=== PATIENT | male | born 1960 | race Caucasian/White ===

== ENCOUNTER → 2017-07-18 | Outpatient (CLI) | payer MEDICARE, OTHER ==
[~2017-07-18] MED LIST: ASPIR-LOW81 MG PO; IOPAMIDOL 370 MG/ML 200 ML INFUS..BTL INJ ONE; LIPITOR20 MG; LOTREL 5-40 MG1 EACH PO; NITRO-DUR1 EAC2 PO; NITROGLYCERIN0.4 MG SL; NORCO 10-325 T1 EACH PO; OXYCODONE HCL10 MG PO; PLAVIX75 MG PO; SODIUM CHLORIDE 0.9% 50ML 50 ML ONE; TRICOR145 MG PO; XANAX2 MG PO; ZETIA10 MG PO
[2017-07-18 14:31] LABS: BLOOD UREA NITROGEN 16 mg/dL (7-26); BUN/CREATININE RATIO 19 (6-25); CREATININE, SERUM 0.86 mg/dL (0.72-1.25); EST GLOMERULAR FILTRATION RATE > 60 ML/MIN (60-)
--- NOTE | 2017-07-19 08:06 | Diagnostic Imaging Report ---
CT abdomen, pelvis and lower extremities, July 18, 2017 Clinical history: Embolism. Left leg pain. Comparison: None Technique: Arterial phase CT abdomen, pelvis and lower extremities after administration of 100 mL Isovue-370 intravenous contrast. Multiplanar reformatted images. Volumetric 3-D images of the arterial tree generated on an independent workstation under physician supervision. DLP: 764.63 Findings: Vascular findings: Aortic dimensions: Diaphragmatic hiatus: 2.2 cm Level of renal arteries: 2 cm Infrarenal aorta: 1.7 cm Normal aortic caliber and contour. Mild zrg-delq-bgsettaj atherosclerosis of the infrarenal segment. Celiac: Normal SMA: Normal MICHELLE: Normal Renal arteries: Single bilaterally. Normal caliber. Trace eyw-wgnm-zwsajbhg atherosclerosis of the left proximal renal artery. Right lower extremity: Common iliac artery: Patent. Indwelling stent extending across the internal iliac origin. No flow limiting stenosis. External iliac: Normal Common femoral artery: Uxe-olka-oqdiumjr calcified and noncalcified posterior plaque. Patent profunda femoris with mild atherosclerosis. SFA: Patent. 2 cm distal segmental stenosis (about 50%) (image 44, series 404) Popliteal: Patent. Juj-jjfc-oxajmqhu proximal segmental calcification. Anterior tibial artery: Patent, with intact runoff to the dorsalis pedis. Proximal nhw-gdcb-osedvtmx noncalcified plaque. Dorsalis pedis: Atherosclerosis with diminutive flow. Tibial peroneal trunk: Xmk-xmtu-kdmcviuo calcification. Peroneal artery: Normal runoff to the ankle. Posterior tibial: Normal runoff to the plantar arteries. Left lower extremity: Common iliac artery: Occluded. Indwelling stent extending to the distal segment. Patent internal iliac artery. External iliac: Origin atherosclerosis without flow-limiting stenosis Common femoral artery: Qgv-xkfe-qaqxqbtb calcified and noncalcified posterior plaque. Patent profunda femoris with mild atherosclerosis. SFA: Patent. Scattered calcified and noncalcified wlb-qgsu-vpbqqkng plaque. Popliteal: Patent. Uho-wawq-ikhsrazz proximal segmental calcification. Anterior tibial artery: Patent, with intact runoff to the dorsalis pubis. Proximal phq-nori-urgizxla noncalcified plaque. Dorsalis pedis: Patent Tibial peroneal trunk: Nonflow-limiting calcification. Peroneal artery: Normal runoff to the ankle. Posterior tibial: Normal runoff to the plantar arteries. Relatively diminished flow compared to the left plantar arteries. Nonvascular findings: Clear lung bases. No pleural effusions. Normal heart size. Liver: Normal Gallbladder: Normal Pancreas: Normal Spleen: Normal Adrenal glands: Normal Kidneys: Normal Urinary bladder: Normal Prostate and seminal vesicles: Normal Bowel: Normal caliber. Peritoneum: Normal Lymph nodes: Normal Skeleton: L4-L5 and L5-S1 anterior fusion. Extensive bilateral facet arthropathy. Grossly patent neural foramen. Bone graft from the left iliac wing. Soft tissues: Normal Impression: 1. 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 Recannulized external iliac artery. Multifocal upr-vmcw-tceugxmd atherosclerosis of the common femoral, superficial femoral and infrapopliteal vasculature as described. 2. Patent right common iliac artery stent without distal flow limiting stenosis. There are diminutive right dorsalis pedis and plantar arteries. This report was generated with voice-recognition technology. Errors in environmental services attendant can occur. Please interpret accordingly and contact a radiologist if there are any questions regarding the report. Signed by: Dr. Logan Altmairano M.D. on 07/19/2017 8:02 AM
== END ==
LOC: CT 13:38
PROVIDERS: ATTEND Internal Medicine Cardiovascular Disease
DX: I74.5 Embolism and thrombosis of iliac artery (principal); I73.9 Peripheral vascular disease, unspecified
CPT/HCPCS: 36415; 75635; 82565; 84520; Q9967

== ENCOUNTER → 2017-08-01 | Outpatient (CLI) | payer MEDICARE, OTHER ==
[~2017-08-01] MED LIST changes: -IOPAMIDOL 370 MG/ML 200 ML INFUS..BTL INJ ONE; +REGADENOSON 0.4 MG/5 ML SYR IV ONE; -SODIUM CHLORIDE 0.9% 50ML 50 ML ONE
== END ==
LOC: NM 08:23
PROVIDERS: ATTEND Internal Medicine Cardiovascular Disease
DX: Z01.818 Encounter for other preprocedural examination (principal); I25.10 Atherosclerotic heart disease of native coronary artery without angina pectoris; R94.31 Abnormal electrocardiogram [ECG] [EKG]
CPT/HCPCS: 78452; 93017; A9502

== ENCOUNTER → 2017-08-09 | Day surgery (SDC) | payer MEDICARE, OTHER ==
[2017-08-08 13:42] LABS: BASOPHILS % 0.2 % (0.0-1.0); EOSINOPHILS # (AUTO) 0.2 (0.0-0.4); EOSINOPHILS % 2.2 % (0.0-6.0); HEMATOCRIT 35.6 % (38.2-49.6); HEMOGLOBIN 11.9 g/dL (14.0-18.0); LYMPHOCYTES # (AUTO) 2.2 (1.0-3.2); LYMPHOCYTES % 25.7 % (18.0-39.1); MEAN CORPUSCULAR HEMOGLOBIN 31.6 pg (28-32); MEAN CORPUSCULAR HGB CONC 33.4 g/dL (31-35); MEAN CORPUSCULAR VOLUME 94.4 fL (81-99); MONOCYTES # (AUTO) 0.7 (0.2-0.8); MONOCYTES % 8.3 % (4.4-11.3); NEUTROPHILS # (AUTO) 5.4 (2.1-6.9); NEUTROPHILS % 63.3 % (38.7-80.0); PLATELET COUNT 354 x10e3/uL (140-360); RED BLOOD COUNT 3.77 x10e6/uL (4.3-5.7)
[2017-08-08 13:56] LABS: BLOOD UREA NITROGEN 14 mg/dL (7-26); BUN/CREATININE RATIO 16 (6-25); CALCIUM 10.2 mg/dL (8.4-10.2); CARBON DIOXIDE 25 mmol/L (22-29); CHLORIDE 108 mmol/L (98-107); CREATININE, SERUM 0.85 mg/dL (0.72-1.25); EST GLOMERULAR FILTRATION RATE > 60 ML/MIN (60-); GLUCOSE 101 mg/dL (74-118); SODIUM 139 mmol/L (136-145)
[~2017-08-09] VITALS: Ht 182.9 cm; Wt 70.8 kg
[2017-08-09] VITALS (11 sets, daily range): BP systolic 105–147; BP diastolic 70–96
[~2017-08-09] MED LIST changes: +FAMOTIDINE 20 MG/2 ML VIAL IV ONE; +FENTANYL CITRATE/PF 100MCG/2 ML INJ ONE; +HEPARIN SOD/SOD CHLORIDE 2,000 ML ONE; +HYDROCODONE/APAP 10MG-325MG TAB ONE; +IOPAMIDOL 370 MG/ML 200 ML INFUS..BTL INJ ONE; +LIDOCAINE HCL 2% LOCAL 20 ML VIAL ONE; +LIPITOR20 MG PO; +LORAZEPAM INJ 2 MG/ML VIAL ONE; +MIDAZOLAM HCL 2 MG/2 ML VIAL ONE; -REGADENOSON 0.4 MG/5 ML SYR IV ONE; +SODIUM CHLORIDE 0.9% 1000ML 1,000 ML ONE
--- OUTSIDE RECORDS SUMMARY | 2017-08-09 12:35 | XMS REPORT ---
[facility] Address Unknown Phone Unavailable Care Team Providers Care Cake Winder Name Role Phone TONG MURRAY Unavailable Unavailable Problems This patient has no known problems. Allergies, Adverse Reactions, Alerts This patient has no known allergies or adverse reactions. Medications This patient has no known medications. Results Test Description Test Time Test Comments Text Results Atomic Results Result Comments CTA ABD/PEL/RUN OFF [facility] [address] [address] Patient Name: RIA BURNHAM MR #: [id number] : 1960 Age/Sex: 57/M Req #: [id number] [place] Physician: Ordered by: TONG MURRAY MD Report #: [id number] Location: CT Room/Bed: Procedure: [id number] CT/CTA ABD/PEL/RUN OFF Exam Date: 07/18/17 Exam Time: 1508 REPORT STATUS: Signed CT abdomen, pelvis and lower extremities, July 18, 2017 Clinical history: Embolism. Left leg pain. Comparison: None Technique: Arterial phase CT abdomen, pelvis and lower extremities after administration of 100 mL Isovue-370 intravenous contrast. Multiplanar reformatted images. Volumetric 3-D images of the arterial tree generated on an independent workstation under physician supervision. DLP: 764.63 Findings: Vascular findings: Aortic dimensions: Diaphragmatic hiatus: 2.2 cm Level of renal arteries: 2 cm Infrarenal aorta: 1.7 cm Normal aortic caliber and contour. Mild non-flow- limiting atherosclerosis of the infrarenal segment. Celiac: Normal SMA : Normal MICHELLE: Normal Renal arteries: Single bilaterally. Normal caliber. Trace hmc-kbgh-lkfyvmvd atherosclerosis of the left proximal renal artery. Right lower extremity: Common iliac artery: Patent. Indwelling stent extending across the internal iliac origin. No flow limiting stenosis. External iliac: Normal Common femoral artery: Omj-twmm-tzffgslc calcified and noncalcified posterior plaque. Patent profunda femoris with mild atherosclerosis. SFA: Patent. 2 cm distal segmental stenosis (about 50%) ( image 44, series 404) Popliteal: Patent. Kix-fzuz-jjkdwjeu proximal segmental calcification. Anterior tibial artery: Patent, with intact runoff to the dorsalis pedis. Proximal wiw-jvps-typhjyvh noncalcified plaque. Dorsalis pedis : Atherosclerosis with diminutive flow. Tibial peroneal trunk: Non-flow- limiting calcification. Peroneal artery: Normal runoff to the ankle. Posterior tibial: Normal runoff to the plantar arteries. Left lower extremity: Common iliac artery: Occluded. Indwelling stent extending to the distal segment. Patent internal iliac artery. External iliac: Origin atherosclerosis without flow-limiting stenosis Common femoral artery: Non-flow -limiting calcified and noncalcified posterior plaque. Patent profunda femoris with mild atherosclerosis. SFA: Patent. Scattered calcified and noncalcified fau-orww-secrypvk plaque. Popliteal: Patent. Nne-koyw-migaculy proximal segmental calcification. Anterior tibial artery: Patent, with intact runoff to the dorsalis pubis. Proximal cid-ofar-shcwnyar noncalcified plaque. Dorsalis pedis: Patent Tibial peroneal trunk: Nonflow-limiting calcification. Peroneal artery: Normal runoff to the ankle. Posterior tibial: Normal runoff to the plantar arteries. Relatively diminished flow compared to the left plantar arteries. Nonvascular findings: Clear lung bases. No pleural effusions. Normal heart size. Liver: Normal Gallbladder: Normal Pancreas: Normal Spleen: Normal Adrenal glands: Normal Kidneys: Normal Urinary bladder: Normal Prostate and seminal vesicles: Normal Bowel: Normal caliber. Peritoneum: Normal Lymph nodes: Normal Skeleton : L4-L5 and L5-S1 anterior fusion. Extensive bilateral facet arthropathy. Grossly patent neural foramen. Bone graft from the left iliac wing. Soft tissues: Normal Impression: 1. 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 Recannulized external iliac artery. Multifocal non-flow- limiting atherosclerosis of the common femoral, superficial femoral and infrapopliteal vasculature as described. 2. Patent right common iliac artery stent without distal flow limiting stenosis. There are diminutive right dorsalis pedis and plantar arteries. This report was generated with voice-recognition technology. Errors in radiology services manager can occur. Please interpret accordingly and contact a radiologist if there are any questions regarding the report. Signed by: Dr. Sushma Altamirano M.D. on 07/19/2017 8:02 AM Dictated By: SUSHMA ALTAMIRANO MD 1 Transcribed By: RAFAEL on 07/19/17801 COPY TO: TONG MURRAY MD
--- NOTE | 2017-08-14 16:33 | Operative Report ---
DATE OF PROCEDURE: August 09, 2017 DIAGNOSES 1. Coronary artery disease with previous coronary stenting, recurrent angina pectoris and abnormal pharmacological nuclear stress test. 2. Peripheral vascular disease with severe claudication of the left lower extremity and rest pain. 3. Chronic low back pain with peripheral neuropathy. PROCEDURES 1. Cardiac catheterization including selective coronary angiography and left ventricular angiogram. 2. Abdominal aortography. 3. Pelvic angiogram. 4. Closure of right femoral artery with Angio-Seal Evolution after right femoral sheathogram. DESCRIPTION OF PROCEDURE: After the usual prepping and draping, the right femoral artery was punctured percutaneously, and a 6-Moldovan arterial sheath was placed in the right femoral artery under modified Seldinger technique. Selective coronary angiography was performed by using modified Lauren type catheters. A 6-Moldovan angled pigtail catheter was utilized for recording of hemodynamics and left ventricular angiogram in the 30-degree BIANCHI projection. The pigtail catheter was also utilized for abdominal aortography after positioning the catheter above the renal arteries and pelvic angiogram after withdrawing the catheter further into the region of the distal abdominal aorta just above the iliac bifurcation. The abdominal and pelvic angiogram was performed by using the TSA technique. After completion of the cardiac catheterization and review of the angiograms, the right femoral angiogram in the right lateral position was performed prior to closure of the right femoral artery with Angio-Seal. After adequate hemostasis was achieved, the patient was transferred to the observation area. There were no complications. There was no blood loss. The procedure was well tolerated. FINDINGS OF PROCEDURE 1. Findings of cardiac catheterization: The aortic pressure was 130/65 with a mean of 86 mmHg. The left ventricular pressure was 135 mmHg. There was no gradient across the aortic valve. The left ventricular end-diastolic pressure was elevated with 20 mmHg. The left coronary artery showed extensive calcification involving the left main coronary artery and the LAD and circumflex system. There was an eccentric 40% stenosis in the distal left main coronary artery. The left anterior descending branch showed some mild proximal irregularities. However, the coronary stent in the mid LAD was fully patent. There was mild narrowing of the ostium of the 1st diagonal branch. The left circumflex artery also showed some mild proximal ostial narrowing. The 1st obtuse marginal branch showed about a 20% stenosis. 2. The right coronary artery was large and dominant and also showed extensive calcifications. There was about a 30% segmental narrowing in the mid right coronary artery and some distal plaques were noted. However, there was no significant stenosis. 3. The left ventricular angiogram showed some mild apical hypokinesis. However, the global ejection fraction was normal at 55%. 4. Report of the abdominal aortogram showed normal renal arteries. There was some eccentric plaque in the mid infrarenal abdominal aorta. However, there was no dissection and no aneurysm. The inferior mesenteric artery was also found to be normal. The right common iliac showed a patent stent with only mild plaque formation at the takeoff. The right internal iliac artery was not identified and appeared to be absent. As seen in the late image, there were extensive collaterals from the right common femoral artery and the inferior mesenteric artery to the external and internal iliac artery on the left. This was further verified by performing pelvic angiogram, which showed a total occlusion of the left common iliac stent and distal reconstitution of the left internal and external iliac artery as well as the superficial femoral and profunda branch through collateral circulation. IMPRESSION 1. Left ventricular dysfunction with an elevated left ventricular end diastolic pressure of 20 mmHg and mild apical hypokinesis but normal global left ventricular ejection fraction of 55%. 2. Extensive coronary calcification involving the left coronary artery and right coronary artery with about 40% narrowing of the left main coronary artery but patent LAD stent. There also were some mild stenotic areas in the obtuse marginal branch and mid portion of the right coronary artery. 3. Complete occlusion of the left common iliac stent with reconstitution of the left external and the left internal iliac arteries through collateral circulation. 4. Patent right common iliac stent but absent right internal iliac artery. RECOMMENDATION: Since the patient had required several previous procedures with bare metal stents and stent grafting of the common iliac arteries and now presenting with severe symptoms at rest and with exercise involving the left lower extremity, I would recommend that the patient should undergo aorto-bilateral iliac bypass graft rather than performing another intravascular percutaneous intervention. The patient has agreed to the procedure and requested the procedure be done at [facility]. The patient will be seen within 10 days after the procedure to have it scheduled accordingly. In the meantime, he will continue his present medications, diet and activity. Job#: [id number] cc:ABBE BURNETTE MD
== END | disposition home or self-care (01) ==
LOC: CATH LAB 12:34
PROVIDERS: ATTEND Internal Medicine Cardiovascular Disease
DX: I25.118 Atherosclerotic heart disease of native coronary artery with other forms of angina pectoris (principal); R94.39 Abnormal result of other cardiovascular function study; I70.212 Atherosclerosis of native arteries of extremities with intermittent claudication, left leg; I70.92 Chronic total occlusion of artery of the extremities; G62.9 Polyneuropathy, unspecified; I10 Essential (primary) hypertension; Z01.812 Encounter for preprocedural laboratory examination; M54.5 Low back pain; Z95.5 Presence of coronary angioplasty implant and graft; Z95.820 Peripheral vascular angioplasty status with implants and grafts; Z88.5 Allergy status to narcotic agent
CPT/HCPCS: 36415; 75625; 80048; 85025; 93458; J2001; J2060; J2250; J7030; Q9967; 36140; 77002; 93452